=== PATIENT | male | born 1945 | race Caucasian/White ===

== ENCOUNTER → 2019-03-23 | Outpatient (CLI) | payer MEDICARE, SELFPAY ==
[2019-03-23 13:40] LABS: Absolute Lymphocyte Count 1.56 X10^3/ul (0.83-4.51); Absolute Neutrophil Count 6.2 X10^3/uL (2.0-7.7); Basophil# 0.04 X10^3/uL; Basophil% 0.5 % (0-1); Eosinophil# 0.11 X10^3/uL; Eosinophils% 1.3 % (0-5); Hematocrit 43.8 % (40-54); Hemoglobin 14.6 g/dl (13.0-16.5); Lymphocyte # 1.56 X10^3/ul (4.0); Lymphocyte % 18.4 % (19-41); Mean Corp Hgb Conc 33.3 g/gl (32-36); Mean Corpuscular Hgb 30.9 pg (27.0-32.0); Mean Corpuscular Volume 92.8 fL (80-94); Mean Platelet Vol. 9.3 fl (6.2-12.0); Monocyte# 0.57 X10^3/uL; Monocyte% 6.7 % (0-10); Neutrophil # 6.16 X10^3/uL (2.7-7.7); Neutrophil % 72.9 % (47-70); POSITIVE COUNT NO; POSITIVE DIFFERENTIAL NO; POSITIVE MORPHOLOGY NO; Platelet Count 252 K/mm3 (150-450); RBC Distribution Width CV 13.8 % (11.6-14.6); RBC Distribution Width SD 47.1 fl (35.1-43.9); Red Blood Count 4.72 M/mm3 (4.6-6.2); White Blood Count 8.5 K/mm3 (4.4-11.0)
[2019-03-23 13:54] LABS: Anion Gap 4 (5-15); BUN 16 mg/dL (7-18); BUN/Creat Ratio 15.8 RATIO (10-20); Calcium,Total 8.9 mg/dL (8.5-10.1); Chloride 107 mmol/L (98-107); Cholesterol 239 mg/dL (200); Creatinine, Serum 1.01 mg/dL (0.70-1.30); EST Glomerular Filtration Rate 77 mL/min (>60); Est Glom Filt Rate - Afr Amer 93 mL/min (>60); Glucose 102 mg/dL (74-106); High Density Lipoprotein 55 mg/dL; PSA,Total- Diagnostic 6.71 ng/mL (0.0-4.0); Potassium 4.4 mmol/L (3.5-5.1); Sodium Level 142 mmol/L (136-145); Triglycerides 159 mg/dL; Very Low Density Lipoprotein 32 mg/dL (5-40)
== END | disposition home or self-care (01) ==
PROVIDERS: Family Provider Family Medicine; PCP Family Medicine; Referring Provider Internal Medicine; Visit Provider Internal Medicine
DX: I35.0 Nonrheumatic aortic (valve) stenosis (principal); Z12.5 Encounter for screening for malignant neoplasm of prostate
CPT/HCPCS: 80048; 80061; 84153; 85025

== ENCOUNTER 2019-12-12 09:03 | Emergency (ER) | payer MEDICARE, SELFPAY ==
[2019-12-12 09:04] VITALS: BP 140/80; PULSE 67; RESP 18; TEMP 36.6; O2SAT 97; BMI 24.3
--- NOTE | 2019-12-12 09:21 | ED.DCSUM_ITS ---
- ER Visit Summary Date of Service: 12/12/19 Chief Complaint: Elevated blood pressure History of Present Illness: The patient is a 74 M past medical history of BPH and valvular heart disease. Patient is on no medications other than [id number] vitamin C. States last several weeks his blood pressures been going up. He said constantly is around 170/71. Is also have been headaches due to this. He denies chest pain or shortness of breath. He denies abdominal pain. Said he is under no stress. Says his marriage is great. Says he exercises frequently. But his blood pressure is not being controlled he is on no medications for it. He would like to be started on something. Physical Examination: Older male no acute distress vital signs stable afebrile. Currently his blood pressure is 140/80. H EENT exam unremarkable. Neck nontender no lymphadenopathy. Lungs clear to auscultation bilaterally. Heart regular rhythm no murmur. Abdomen soft nontender normal bowel sounds no peritoneal signs. Patient is moving all 4 extremities. Neurovascularly intact. 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 Dorsi plantarflexion intact. Neuro exam normal NIH 0. No facial droop. Normal speech. Test Results: None Emergency Department Course and Treatment: Discussed with patient options. We could wait and watch his blood pressure he can follow-up. He did not want to do that. He went to be started on medication. He will be placed on lisinopril 10 mg a day. Treatment Plan: Daily lisinopril. Watch his blood pressures at least twice daily. Follow-up with his doctor next week. If his blood pressure is running low stop the medication. If it is running too high they can adjust the dose. Disposition: Discharge Impression: New onset hypertension This note was generated with [employer]oun[employer] software. It may contain incorrect words, spelling, and punctuation that were not noted in review of the chart prior to signing ED Disposition - Plan for ED Patient: Referrals: Ceci Templeton MD [Primary Care Provider] -
--- NOTE | 2019-12-12 09:23 | ED.DEP ---
ED Disposition - Plan for ED Patient: Disposition: Home or Assisted Living Instructions: HYPERTENSION, Established Prescriptions: Lisinopril [Prinivil] 10 mg PO DAILY #30 tab Prescription Printed Referrals: Ceci Templeton MD [Primary Care Provider] - 1 Week Additional Instructions: Check your blood pressures in the morning and again in the evenings. If it is running too high they may have to adjust your medication dose. If it is running too low below 110 systolically you need to stop the medication. Follow-up with your doctor next week and log your blood pressures twice daily until then and show those blood pressure readings to her.
== END 2019-12-12 09:36 | disposition home or self-care (01) ==
LOC: ED 09:26
PROVIDERS: Emergency Provider Emergency Medicine; PCP Internal Medicine
DX: I10 Essential (primary) hypertension (principal); N40.0 Benign prostatic hyperplasia without lower urinary tract symptoms; I35.9 Nonrheumatic aortic valve disorder, unspecified
CPT/HCPCS: 99282

== ENCOUNTER → 2019-12-18 | Outpatient (CLI) | payer MEDICARE, SELFPAY ==
[2019-12-12 09:04] VITALS: BMI 24.3
[2019-12-18 15:34] LABS: Anion Gap 4 (5-15); BUN 13 mg/dL (7-18); BUN/Creat Ratio 13.8 RATIO (10-20); Calcium,Total 9.6 mg/dL (8.5-10.1); Chloride 105 mmol/L (98-107); Creatinine, Serum 0.94 mg/dL (0.70-1.30); EST Glomerular Filtration Rate 83 mL/min (>60); Est Glom Filt Rate - Afr Amer 101 mL/min (>60); Glucose 93 mg/dL (74-106); Potassium 4.5 mmol/L (3.5-5.1); Sodium Level 139 mmol/L (136-145)
== END | disposition home or self-care (01) ==
LOC: LABSPEC 14:33
PROVIDERS: PCP Internal Medicine; Referring Provider Family Medicine; Visit Provider Family Medicine
DX: I10 Essential (primary) hypertension (principal)
CPT/HCPCS: 80048

== ENCOUNTER → 2020-05-22 08:07 | Outpatient (CLI) | payer MEDICARE, SELFPAY ==
[2020-05-22 09:42] LABS: PSA,Total- Diagnostic 8.62 ng/mL (0.0-4.0)
== END ==
PROVIDERS: PCP Internal Medicine; Referring Provider Urology; Visit Provider Urology
DX: R97.20 Elevated prostate specific antigen [PSA] (principal)
CPT/HCPCS: 36415; 84153

== ENCOUNTER → 2020-08-07 08:06 | Outpatient (CLI) | payer MEDICARE, SELFPAY ==
[2020-08-07 08:41] LABS: Hemoglobin 14.8 g/dL (13.0-16.5); Mean Corp Hgb Conc 32.9 g/dL (32-36); Mean Corpuscular Hgb 31.6 pg (27.0-32.0); Mean Corpuscular Volume 95.9 fL (80-94); Mean Platelet Vol. 9.1 fl (6.2-12.0); Platelet Count 281 K/mm3 (150-450); RBC Distribution Width CV 12.9 % (11.6-14.6); RBC Distribution Width SD 45.5 fl (35.1-43.9); Red Blood Count 4.69 M/mm3 (4.6-6.2); White Blood Count 5.8 K/mm3 (4.4-11.0)
[2020-08-07 09:07] LABS: ALB/GLOB Ratio 1.1 RATIO (0.9-2.4); AST(SGOT) 16 U/L (15-37); Alanine Aminotransfer ALT/SGPT 20 U/L (16-61); Alkaline Phosphatase 50 U/L (45-117); Anion Gap 2 (5-15); BUN 12 mg/dL (7-18); Calcium,Total 9.3 mg/dL (8.5-10.1); Chloride 107 mmol/L (98-107); Creatinine, Serum 0.92 mg/dL (0.70-1.30); EST Glomerular Filtration Rate 85 mL/min (>60); Est Glom Filt Rate - Afr Amer 102 mL/min (>60); Globulin 3.7 g/dL (2.2-4.2); Glucose 105 mg/dL (74-106); Potassium 4.4 mmol/L (3.5-5.1); Protein, Total 7.7 g/dL (6.4-8.2); Sodium Level 140 mmol/L (136-145)
[2020-08-07 10:23] LABS: Hepatitis C Antibody Non-Reactive (Nonreactive)
== END ==
PROVIDERS: PCP Internal Medicine; Referring Provider Internal Medicine; Visit Provider Internal Medicine
DX: I10 Essential (primary) hypertension (principal); Z79.899 Other long term (current) drug therapy; Z11.59 Encounter for screening for other viral diseases
CPT/HCPCS: 36415; 80053; 85027; 86803

== ENCOUNTER → 2020-12-03 08:10 | Outpatient (CLI) | payer MEDICARE, SELFPAY | PROVIDERS: PCP Internal Medicine; Referring Provider Urology; Visit Provider Urology | DX: R97.20 Elevated prostate specific antigen [PSA] (principal) | CPT/HCPCS: 36415; 84153 ==

== ENCOUNTER 2020-12-25 12:37 | Day surgery (SDC) | payer MEDICARE, SELFPAY ==
--- NOTE | 2020-12-23 13:03 | EKG12_ITS ---
Test Reason : PRE OP Blood Pressure : / mmHG Vent. Rate : 059 BPM Atrial Rate : 059 BPM P-R Int : 170 ms QRS Dur : 094 ms QT Int : 402 ms P-R-T Axes : 077 082 088 degrees QTc Int : 397 ms Sinus bradycardia Otherwise normal ECG Confirmed by NORBERTO DESIR, JELENA ([id number]), map editor DARION SALGUERO ([id number]) on 12/24/2020 8:15:19 AM Referred By: Ty Wadsworth Confirmed By:JELENA THORNTON MD
[2020-12-25] VITALS (9 sets, daily range): BP systolic 127–159; BP diastolic 60–90; PULSE 60–81; RESP 16–18; TEMP 36.6–36.9; O2SAT 96–100; BMI 25.6; BMI 88.0
--- NOTE | 2020-12-25 07:21 | PCM.HP.STD ---
Problem List (1) BPH with obstruction/lower urinary tract symptoms Status: Acute History of Present Illness Date of Admission: 12/25/20 Chief Complaint: BPH with obstruction The patient is a 75 year old male with a history of large prostate with BPH and obstruction presents today for a transurethral resection of the prostate and also a prostate biopsy. Past Medical History Allergies No Known Allergies Allergy (Verified 12/18/20 13:12) Home Medications: Ambulatory Orders Medication Instructions Recorded Ascorbic Acid [Vitamin C] 500 mg PO DAILY 12/18/20 Lisinopril [Prinivil] 10 mg PO BID 12/18/20 Surgical History: no surgical history Smoking Status: Never smoker Review of Systems Constitutional: Denies: Chills, Fever, Weight Change HEENT: Denies: Head Aches, Sinus Congestion, Sinus Drainage Cardiovascular: Denies: Chest Pain, Palpitations Respiratory: Denies: Cough, Shortness of breath at rest, Sputum production Gastrointestinal: Denies: Abdominal Pain, Nausea, Vomiting Genitourinary: Denies: Dysuria Musculoskeletal: Denies: Joint Pain, Joint Tenderness Skin: Denies: Rash, Wounds Neurological: Denies: Numbness, Tingling, Focal weakness Psychiatric: Denies: Anxiety, Depression, Homicidal Ideations, Suicidal Ideations Hematologic/ Lymphatic: Denies: Easy Bruising, Easy Bleeding VTE Information - Inpt Only VTE Present on Admission: No - Physical Exam Vitals/I&O's: Body Mass Index (BMI) 24.3 General: Alert, Oriented x3, Cooperative HEENT: Atraumatic, PERRLA, EOMI, Normocephalic Neck: Supple, No JVD, Negative Carotid Bruits Lungs: Clear to auscultation, Normal air movement Cardiovascular: Regular rate, No murmurs Abdomen: Bowel Sounds Present, Soft, Non Tender Extremities: No edema, Capillary Refill Less than 3 Seconds Skin: No rashes, No breakdown Musculoskeletal: No Tenderness to Palpation of Joints or Extremities Neurological: Cranial nerves II-XII grossly intact Psych/Mental Status: Normal Affect, Appropriate Microbiology Past 72 Hours 12/24/20 13:10 Interface Orders SARS-CoV-2 Antigen (Rapid) - Final Current Medications Cefazolin Sodium 2 gm/ Sodium (Chloride) 110 mls @ 150 mls/hr IV PREOP ONE Stop: 12/25/20 15:13 Assessment/Plan All Active Problems BPH with obstruction/lower urinary tract symptoms (Acute) Plan to proceed with a transurethral resection of the prostate and a prostate biopsy he is going
[2020-12-25] MEDS: Lactated Ringers 1,000 ML 100 ML IV (13:07)
--- NOTE | 2020-12-25 14:30 | PROS_PTH ---
PATIENT: ANA LILIA SHEN LOC: [facility] [place][id number] AGE/SX: 75/M ROOM: RE12/25/[address]: Dr. Ty Wadsworth MD : 1945 BED: DIS: 12/26/2020 SPEC #: [id number] RECD: 12/26/20 07:36 STATUS: DENY REJen #: [id number] THOMPSON: 12/25/20 14:[address]: Ty Wadsworth DEPT: SURGICAL PATHOLOGY RECD BY: Fouzia Phan ENTERED: 12/26/20 08:46 SP TYPE: TURP OTHR DR: Dr. Ceci Templeton MD Tissues: A - Prostate, NOS B - PROSTATE BIOPSY C - PROSTATE BIOPSY Procedures: Surgery Specimen Level IV HEADER OPERATION: Cysto, TUR prostate, Olympus, finger-guided prostate biopsy PRE-OP DIAGNOSIS: BPH with obstruction TISSUE SUBMITTED: A - Prostate tissue, B - Prostate biopsy, left side, C - Prostate biopsy, right side MICROSCOPIC DIAGNOSIS A. Prostate tissue, TUR: Benign prostatic hyperplasia, glandular and stromal type. Focal mild chronic inflammation. B. Left prostate, core biopsy: Prostatic tissue, negative for malignancy. C. Right prostate, core biopsy: Prostatic tissue, negative for malignancy. SENTHIL:alexx 12/27/2020 MICROSCOPIC DESCRIPTION Slides are reviewed. GROSS DESCRIPTION A - Received is one container labeled with the patient's name and designated prostate tissue. The specimen consists of multiple irregular fragments of pink-capellan, rubbery, soft tissue that in aggregate weigh 10.2 gm and measure in aggregate 4 x 4 x 1.5 cm. The entire specimen is submitted in ten cassettes. B - Received in fixative is one container labeled with the patient's name and designated left side prostate biopsy. The specimen consists of two elongated fragments of light capellan-white soft tissue each measuring 2 cm in length and 0.1 cm in diameter. The specimen is totally submitted in one cassette. C - Received in fixative is one container labeled with the patient's name and designated right side prostate biopsy. The specimen consists of three elongated fragments of light capellan-white soft tissue measuring 1 to 2 cm in length and 0.1 cm in diameter. The specimen is totally submitted in one cassette. / SENTHIL:alexx 12/26/20 TC:5 CPT: 22048 x3
--- NOTE | 2020-12-25 14:48 | PCM.DC.URO ---
Discharge Diet: Light diet - advance as tolerated Discharge Activity: Return to Normal Activity, May Shower May resume sexual activity in: 6 weeks Lifting Restrictions: no lifting 10 lbs, no heavy activity Call your doctor if your incision/area has: Continuous Slow Oozing, Sudden Increased Bleeding, Increased Pain/ Swelling, Increased Redness, Foul Smelling Discharge, Swelling at the incision site Call your doctor if you observe: Fever of 101 or Higher Suture Line Care: Avoid Pulling/Pushing, Avoid Pinching/Bending Instructions: Transurethral Resection of the Prostate (TURP): Home Recovery Allergies/Adverse Reactions: Allergies No Known Allergies Allergy (Verified 12/25/20 12:47) Medications to take at Discharge Ascorbic Acid [Vitamin C] 500 mg PO DAILY 12/18/20 Lisinopril [Prinivil] 10 mg PO BID 12/18/20 Ciprofloxacin [Cipro] 500 mg PO BID #10 tab 12/25/20 Hydrocodone Bitart/Apap 5-325 [[place] 5MG-325MG] 1 tablet PO Q4H PRN PRN 7 Days #14 tablet 12/25/20 The following prescriptions were given: Ciprofloxacin [Cipro] 500 mg PO BID #10 tab Transmission Status: Pending to [facility] Hydrocodone Bitart/Apap 5-325 [[place] 5MG-325MG] 1 tablet PO Q4H PRN PRN 7 Days #14 tablet PRN Reason: Pain Transmission Status: Sent to [facility] Orders to be completed after discharge: 12 Lead EKG [[facility]] Time Frame: 12/23/20, Location: None Selected Primary Care Physician: Ceci Templeton MD [Primary Care Provider] - Test Results: Test results from this visit will be discussed in further detail at your follow-up appointment, if applicable. Please Follow Up With: Ty Wadsworth MD When: in 2 weeks, please call to make an appointment. Proposed Discharge Date: 12/26/20
[2020-12-25] MEDS: Cefazolin 2 GM in 0.9% Normal Saline 100 ML IV (14:53)
--- NOTE | 2020-12-25 15:48 | OP.PCM_ITS ---
Problem List (1) BPH with obstruction/lower urinary tract symptoms Status: Acute Report of Operation Date of Procedure: 12/25/20 Pre-Operative Diagnosis: BPH with obstruction and elevated PSA Post-Operative Diagnosis: Same Surgery/Procedure Performed:: Transurethral resection of the prostate. Transrectal prostate biopsy Description of Surgical Findings:: In the preoperative setting I discussed with the patient how the surgery would be done with expect afterwards. We discussed how a prostate resection is done and we discussed the risk of the surgery including, bleeding, infection, retrograde ejaculation, changes with ejaculation or intercourse,. We discussed the possibility that the resection of the prostate may not alleviate his urinary symptoms. We discussed the small risk of developing scar tissue along the urethral channel and strictures. We also discussed the chance of the prostate could grow back and he may need further surgery or treatment in the future for prostate problems. Patient was taken back to the operating room, timeout procedure was performed, he was identified and marked and placed on the operating room table. He underwent general anesthesia. He was placed in dorsolithotomy position. Penis and testicles were prepped and draped in usual sterile fashion. Went into the bladder using the visual obturator with a resectoscope. Once inside the bladder identified the right and left ureteral orifice. I then identified the prostate and the anatomy of the prostate. I marked out the area of the sphincter and the verumontanum was identified. I then proceeded with the prostate resection first resected the median lobe. And then resected the right lobe of the prostate. Then to resect the left lobe of the prostate. I then resected the apical tissue of the prostate. Made sure that there was no injury to the sphincter or the verumontanum was still intact. At the end of the resection all the chips were Ellik out of the bladder. I then identified the left and right ureteral orifice and these were confirmed to be in good position and effluxing and not injured. The resectoscope was removed, a 22 Persian catheter was placed into the bladder on continuous irrigation. I then double gloved and placed a biopsy needle through the glove and the a finger guided prostate biopsy in both the left and right side. And the urine was fairly light pink color and draining normally. He was taken back to the PACU in good condition. Type of Anesthesia:: General Drains: [address] - Admit VTE Documentation VTE Present on Admission: No VTE Mechan Device Prophylaxis: SCD's
[2020-12-25] MEDS: Acetaminophen/Codeine #3 Tablet 1 TABLET PO (19:35)
[2020-12-25] MEDS: 0.9% Normal Saline 1,000 ML 75 ML IV (21:39)
[2020-12-25] MEDS: Docusate Sodium 100 MG Capsule PO (21:40)
[2020-12-25] MEDS: Acetaminophen 325 MG Tablet PO (21:40)
[2020-12-25] MEDS: Lisinopril 10 MG Tablet PO (21:40)
[2020-12-25] MEDS: Ciprofloxacin 400 MG/200 ML BAG 200 MG IV (22:00)
[2020-12-25] MEDS: 0.9% Saline Lock 10 ML Syringe IV (22:00)
[2020-12-26] MEDS: Acetaminophen/Codeine #3 Tablet 1 TABLET PO (01:39)
[2020-12-26 01:50] VITALS: BMI 88.0
[2020-12-26 04:27] VITALS: BP 124/64; PULSE 62; RESP 18; TEMP 36.7; O2SAT 97
[2020-12-26] MEDS: Acetaminophen 325 MG Tablet PO (04:34)
[2020-12-26 05:50] VITALS: BMI 88.0
[2020-12-26 08:05] VITALS: BP 132/73; PULSE 57; RESP 16; TEMP 36.7; O2SAT 98
[2020-12-26] MEDS: Lisinopril 10 MG Tablet PO (09:16)
[2020-12-26] MEDS: Docusate Sodium 100 MG Capsule PO (09:16)
[2020-12-26] MEDS: Pantoprazole Sodium 40 MG Tablet PO (09:16)
[2020-12-26 09:50] VITALS: BMI 88.0
--- NOTE | 2020-12-26 11:31 | PHA.DC.MC ---
Pharmacy Service has performed discharge medication reconciliation and counseling for this patient. The patient was counseled on the following discharge medications and changes in medications for homegoing were reviewed. 1. CIPRO 2. NORCO The Reason for Use, instructions for use, and potential side effects were reviewed for all new medications. The patient's questions regarding all of their medications were answered. The patient was able to verbally demonstrate an understanding of their discharge medications. Home Medications Ascorbic Acid [Vitamin C] 500 mg PO DAILY 12/18/20 Lisinopril [Prinivil] 10 mg PO BID 12/18/20 Ciprofloxacin [Cipro] 500 mg PO BID #10 tab 12/25/20 Hydrocodone Bitart/Apap 5-325 [[place] 5MG-325MG] 1 tab PO Q4H PRN PRN 7 Days #14 tab 12/25/20 The patient's discharge medication list was reviewed for discrepancies and discrepancies were resolved.
== END 2020-12-26 13:20 | disposition home or self-care (01) ==
LOC: SDC 12:38 → AC 12:39 → MS3 16:25
PROVIDERS: PCP Internal Medicine; Referring Provider Urology; Visit Provider Urology
PROC: (CPT 52601; principal; 2020-12-25 14:20)
DX: N40.1 Benign prostatic hyperplasia with lower urinary tract symptoms (principal); N13.8 Other obstructive and reflux uropathy; R97.20 Elevated prostate specific antigen [PSA]; Z20.828 Contact with and (suspected) exposure to other viral communicable diseases; I10 Essential (primary) hypertension; K58.9 Irritable bowel syndrome, unspecified; Z79.899 Other long term (current) drug therapy
CPT/HCPCS: 52601; 87426; 88305; 93005; C9803; J7030; J7120; A4216; J0744; J2405

== ENCOUNTER 2021-02-07 14:57 | Outpatient (RCR) | payer MEDICARE, SELFPAY ==
[2020-12-25 17:50] VITALS: BMI 25.6
== END 2021-04-22 23:59 ==
LOC: IMMUN 14:57
PROVIDERS: PCP Internal Medicine; Visit Provider Family Medicine
DX: Z23 Encounter for immunization (principal)
CPT/HCPCS: 0001A; 0002A; 91300

== ENCOUNTER → 2021-04-23 | Outpatient (CLI) | payer MEDICARE, SELFPAY ==
[2020-12-25 17:50] VITALS: BMI 25.6
[2021-04-23 17:31] LABS: Cholesterol 253 mg/dL (200); High Density Lipoprotein 51 mg/dL; Triglycerides 160 mg/dL; Very Low Density Lipoprotein 32 mg/dL (5-40)
== END | disposition home or self-care (01) ==
PROVIDERS: PCP Internal Medicine; Visit Provider Internal Medicine
DX: Z00.00 Encounter for general adult medical examination without abnormal findings (principal); I10 Essential (primary) hypertension
CPT/HCPCS: 80061

== ENCOUNTER → 2021-09-15 | Outpatient (CLI) | payer MEDICARE, SELFPAY | END | disposition home or self-care (01) | PROVIDERS: PCP Internal Medicine; Referring Provider Physician Assistant; Visit Provider Physician Assistant | DX: Z11.52 Encounter for screening for COVID-19 (principal) | CPT/HCPCS: 87635; U0005; U0003 ==

== ENCOUNTER 2021-11-24 14:18 | Outpatient (CLI) | payer MEDICARE, SELFPAY | END 2021-11-24 23:59 | disposition short-term general hospital (02) | LOC: LABSPEC 14:19 | PROVIDERS: PCP Internal Medicine; Referring Provider Physician Assistant Surgical; Visit Provider Physician Assistant Surgical | DX: U07.1 COVID-19 (principal) | CPT/HCPCS: 87635; U0003; U0005 ==

== ENCOUNTER 2021-12-05 08:07 | Outpatient (CLI) | payer MEDICARE, SELFPAY ==
[2021-12-05 09:32] LABS: Cholesterol 229 mg/dL (200); High Density Lipoprotein 46 mg/dL; Triglycerides 206 mg/dL; Very Low Density Lipoprotein 41 mg/dL (5-40)
== END 2021-12-05 23:59 | disposition short-term general hospital (02) ==
LOC: LAB 08:09
PROVIDERS: PCP Internal Medicine; Visit Provider Internal Medicine
DX: I10 Essential (primary) hypertension (principal); Z79.899 Other long term (current) drug therapy
CPT/HCPCS: 36415; 80061

== ENCOUNTER → 2022-07-02 | Outpatient (CLI) | payer MEDICARE, SELFPAY ==
[2022-07-02 10:24] LABS: Hematocrit 41.5 % (40-54); Hemoglobin 14.2 g/dL (13.0-16.5); Mean Corp Hgb Conc 34.2 g/dL (32-36); Mean Corpuscular Hgb 32.3 pg (27.0-32.0); Mean Corpuscular Volume 94.3 fL (80-94); Mean Platelet Vol. 9.1 fl (6.2-12.0); Platelet Count 270 K/mm3 (150-450); RBC Distribution Width SD 45.1 fl (35.1-43.9)
[2022-07-02 10:59] LABS: ALB/GLOB Ratio 1.1 RATIO (0.9-2.4); AST(SGOT) 16 U/L (15-37); Alanine Aminotransfer ALT/SGPT 23 U/L (16-61); Albumin, Serum 3.9 g/dL (3.2-5.0); Alkaline Phosphatase 43 U/L (45-117); Anion Gap 5 (5-15); BUN 11 mg/dL (7-18); BUN/Creat Ratio 12.2 RATIO (10-20); Calcium,Total 9.2 mg/dL (8.5-10.1); Chloride 106 mmol/L (98-107); Cholesterol 226 mg/dL (200); EST Glomerular Filtration Rate 87 mL/min (>60); Est Glom Filt Rate - Afr Amer 105 mL/min (>60); Globulin 3.6 g/dL (2.2-4.2); Glucose 101 mg/dL (74-106); High Density Lipoprotein 50 mg/dL; Potassium 4.4 mmol/L (3.5-5.1); Protein, Total 7.5 g/dL (6.4-8.2); Sodium Level 139 mmol/L (136-145); Triglycerides 137 mg/dL; Very Low Density Lipoprotein 27 mg/dL (5-40)
== END | disposition home or self-care (01) ==
PROVIDERS: PCP Internal Medicine; Referring Provider Internal Medicine; Visit Provider Internal Medicine
DX: E78.2 Mixed hyperlipidemia (principal); Z79.899 Other long term (current) drug therapy
CPT/HCPCS: 36415; 80053; 80061; 85027